=== PATIENT | male | born 1990 | race Caucasian/White ===

== ENCOUNTER 2019-03-07 10:21 | Emergency (ER) | payer SELFPAY ==
[~2019-03-07] VITALS: Ht 188 cm; Wt 140.6 kg
--- OUTSIDE RECORDS SUMMARY | 2019-03-07 10:27 | XMS REPORT | Continuity of Care Document ---
Author Organization Unknown Address Unknown Allergies There is no data. Medications There is no data. Problems Date Dx Coded Attending Type Code Diagnosis Diagnosed By 01/15/2014 KIAH PHILLIPS APRN V74.5 STD SCREEN Procedures Code [place] [address] ROUTINE VENIPUNCTURE 01/15/2014 56876 SYPHILLIS-[facility] 01/16/2014 40738 HIV ([facility]) 01/16/2014 76416 GC/CHLAM URINE ([facility]) 01/16/2014 HERPSM1,2 HERPES SIMPLEX 1 AND 2, IGM, IGG 01/16/2014 Results Test Result Range Hepatitis Panel (4) - 08/09/16 10:53 HBsAg Screen Negative Negative Hep A Ab, IgM Negative Negative Hep B Core Ab, IgM Negative Negative Hep C Virus Ab <0.1 s/co ratio 0.0-0.9 HSV 1 and 2-Specific Ab, IgG - 08/09/16 10:53 HSV 1 IgG, Type Spec <0.91 index 0.00-0.90 HSV 2 IgG, Type Spec <0.91 index 0.00-0.90 Encounters ACCT No. Visit Date/Time Discharge Status Pt. Type Provider Facility Loc./Unit Complaint [id number] 01/15/2014 09:46:00 01/15/2014 23:59:59 CLS Outpatient KIAH PHILLIPS APRN [id number] 08/11/2016 08:08:00 Document Registration
--- OUTSIDE RECORDS SUMMARY | 2019-03-07 10:27 | XMS REPORT ---
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 Unknown Non Drug Allergy Jul, Unknown SOCIAL HISTORY No smoking Hx information available PLAN OF CARE Activity Details Pending Test GC/CHLAM URINE (STATE) Pending Test SYPHILIS (STATE) Pending Test HIV (STATE) prn,Reason: VITAL SIGNS Height 73.5 in 2016-08-09 Weight 295.6 lbs 2016-08-09 Heart Rate 78 bpm 2016-08-09 Respiratory Rate 20 2016-08-09 BMI 38.47 kg/m2 2016-08-09 Blood pressure systolic 130 mmHg 2016-08-09 Blood pressure diastolic 70 mmHg 2016-08-09 MEDICATIONS No Known Medications RESULTS Name Result Date Reference Range HSV 1/2 ANTIBODY IgG 2016-08-09 HSV 1 IgG, Type Spec <0.91 0.00-0.90 HSV 2 IgG, Type Spec <0.91 0.00-0.90 HEPATITIS PROFILE 2016-08-09 Hep A Ab, IgM Negative Negative HBsAg Screen Negative Negative Hep B Core Ab, IgM Negative Negative Hep C Virus Ab <0.1 0.0-0.9 GC/CHLAM URINE ([facility]) 2016-08-09 CHLAMYDIA GC SYPHILIS (STATE) 2016-08-09 HIV (STATE) 2016-08-09 PROCEDURES Procedure Date Ordered Related Diagnosis Body Site ACUTE HEPATITIS PANEL Aug 09, 2016 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
--- NOTE | 2019-03-07 11:40 | ED Headache ---
General Chief Complaint: Head/Cervical Problems Stated Complaint: HEADACHE; LT VISION LOSS Source: patient, other (future [id number]) Exam Limitations: no limitations History of Present Illness Date Seen by Provider: Mar 07, 2019 Time Seen by Provider: 11:18 Initial Comments The patient presents to ER by private conveyance with chief complaint that since 2099 yesterday he's had a left-sided migraine headache that he describes as throbbing and worse with exertion causing a stabbing sensation. No photophobia or phonophobia. He says he had headaches in the past but always been right sided throbbing. Was different about today's headache though is that it was left-sided and made his vision blur when he got to its worst while he was at work. He had to leave work and went home so on the couch called his future [id number] to give him a ride to the ER. She brought him in and he says he has not taken anything for the pain but it resolved by the time he got here. Says the headache has been intermittent since 9:00 last night and usually last for about an hour or so. He's never followed with a primary care doctor but he's been told in the past at ERs that he might have high blood pressure and should follow-up. No head trauma he does not take any medications routinely. He denies recreational drugs. He is mother had high blood pressure and diabetes. He is not having any sore throat, fever, vomiting, diarrhea, dysuria, abdominal pain. 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 Allergies and Home Medications Patient Home Medication List Home Medication List Reviewed: Yes Review of Systems Review of Systems Constitutional: No chills, No diaphoresis Eyes: Denies Blindness, Denies Blurred Vision Ears, Nose, Mouth, Throat: denies ear pain, denies ear discharge Respiratory: No cough, No phlegm, No short of breath Cardiovascular: No chest pain, No edema Gastrointestinal: No abdominal pain, No constipation, No diarrhea; nausea (occasionally); No vomiting Genitourinary: No discharge, No dysuria Musculoskeletal: back pain (chronic); No joint pain Past Ummyxtj-Wepunk-Scnuil Hx Patient Social History Alcohol Use: Denies Use Recreational Drug Use: No Smoking Status: Smoker Current Status UKN Type Used: Electronic/Vapor Recent Hopitalizations: No Physical Abuse: No Sexual Abuse: No Mistreated: No Fear: No Seasonal Allergies Seasonal Allergies: No Past Medical History Surgeries: Yes (removal of shrapnel in hand) Respiratory: No Cardiac: No Neurological: No (Hx of some headaches not diagnosed) Genitourinary: No Gastrointestinal: No Musculoskeletal: No Endocrine: No HEENT: No Cancer: No Psychosocial: No Integumentary: No Blood Disorders: No Physical Exam Vital Signs Capillary Refill : Height, Weight, BMI Height: '" Weight: lbs. oz. kg; BMI Method: General Appearance: WD/WN, no apparent distress HEENT: PERRL/EOMI, normal ENT inspection, pharynx normal, TM abnormal (L) (mild injection without erythema, loss of landmarks.) Neck: non-tender, full range of motion, supple, normal inspection Cardiovascular: normal peripheral pulses, regular rate, rhythm, no edema Respiratory: lungs clear, normal breath sounds, no respiratory distress, no accessory muscle use Psychiatric: alert, oriented x 3 Crainal Nerves: normal hearing, normal speech, PERRL Coordination/Gait: normal gait Motor/Sensory: no motor deficit, no sensory deficit Skin: normal color, warm/dry Progress/Results/Core Measures Results/Orders My Orders Orders - VIVIAN OLIVEIRA Ct Head Wo (03/07/19 11:30) Cbc With Automated Diff (03/07/19 11:30) Comprehensive Metabolic Panel (03/07/19 11:30) Drug Screen Stat (Urine) (03/07/19 11:30) Thyroid Stimulating Hormone (03/07/19 11:30) Ua Culture If Indicated (03/07/19 11:30) Ed Iv/Invasive Line Start (03/07/19 11:30) Progress Progress Note : Time: 11:38 Progress Note We have offered to do a CT of the head, labs looking for dehydration or infection contributing or anemia. Urinalysis looking for UDS, infection or dehydration. Patient's headache is definitely different from his usual migraine headaches but he's never had them formally diagnosed or worked up. Because they are so intermittent and have already resolved he does not want anything for the pain now and has not been taking anything for the pain. After discussing the workup plan with him and he came and informed us that due to money being tight he would prefer not to do any workup today but he would follow-up with the primary care doctor likely suggested. He would like a note for work today. He is going to go stay at someone's house that has air-conditioning and drink fluids and see if the migraine headache goes away. Departure Impression Primary Impression: Headache Qualified Codes: R51 - Headache Disposition: 01 HOME, SELF-CARE Condition: Stable Departure-Patient Inst. Decision time for Depature: 11:41 Referrals: NO,LOCAL PHYSICIAN (PCP/Family) Primary Care Physician Patient Instructions: Headache, Adult (DC), LOCAL PHYSICIAN LIST Add. Discharge Instructions: If you begin to have any neurologic changes such as weakness, numbness, slurring speech, fevers or other worrisome symptoms please return to the nearest ER. Please establish care with a primary care doctor and follow-up. Tylenol 1000 mg every 8 hours in addition to ibuprofen 800 mg every 8 hours as necessary for pain relief. Get some sleep and drink lots of fluids. All discharge instructions reviewed with patient and/or family. Voiced understanding. Work/School Note: Work Release Form Date Seen in the Emergency Department: Mar 07, 2019 Return to Work: Mar 08, 2019 Restrictions: No Restrictions VIVIAN OLIVEIRA Mar 07, 2019 11:40
[2019-03-07 11:47] VITALS: BP 147/71
--- NOTE | 2019-03-07 11:47 | NUR ---
Pt discharged to home after Dr Broussard explained the work up he was ordering on pt to determine if any medical issues causing headache. Pt elected he could go home as his headache was gone but would take a work note that he was in ER and now he will return on Monday to work as he does not work on the weekend. Pt instructed of any worries or concerns to return to ED for.
== END 2019-03-07 11:47 | disposition home or self-care (01) ==
LOC: ER FS 10:23
DX: R51 Headache (principal); F17.290 Nicotine dependence, other tobacco product, uncomplicated; Z91.14 Patient's other noncompliance with medication regimen; Z82.49 Family history of ischemic heart disease and other diseases of the circulatory system
CPT/HCPCS: 99282

== ENCOUNTER 2019-04-11 11:22 | Emergency (ER) | payer SELFPAY ==
[~2019-04-11] VITALS: Ht 188 cm; Wt 137.4 kg
--- OUTSIDE RECORDS SUMMARY | 2019-04-11 11:27 | XMS REPORT | Continuity of Care Document ---
Author Organization Unknown Address Unknown Phone Unavailable Allergies There is no data. Medications There is no data. Problems Date Dx Coded Attending Type Code Diagnosis Diagnosed By 01/15/2014 KIAH PHILLIPS APRN V74.5 STD SCREEN Procedures Code [place] [address] ROUTINE VENIPUNCTURE 01/15/2014 03987 SYPHILLIS[facility] 01/16/2014 72735 HIV ([facility]) 01/16/2014 13720 GC/CHLAM URINE ([facility]) 01/16/2014 HERPSM1,2 HERPES SIMPLEX 1 AND 2, IGM, IGG 01/16/2014 Results Test Result Range GLUCOSE, SERUM - 03/21/19 08:45 GLUCOSE 80 mg/dL 65-99 Encounters ACCT No. Visit Date/Time Discharge Status Pt. Type Provider Facility Loc./Unit Complaint [id number] 01/15/2014 09:46:00 01/15/2014 23:59:59 CLS Outpatient KIAH PHILLIPS APRN [id number] 03/21/2019 08:45:00 03/21/2019 23:59:59 CLS Outpatient DERICK HARRIS DO [facility] [id number] 03/21/2019 08:45:00 Document Registration
[2019-04-11] MEDS ORDERED: TETANUS,DIPTH,PERTUSS P/F (BOOSTRIX) 0.5 ML VIAL IM ONE (11:30)
[2019-04-11] MEDS ORDERED: LIDOCAINE 1% INJ 20 ML 20 ML VIAL INJ ONE (11:30)
[2019-04-11 11:57] VITALS: BP 133/74
--- NOTE | 2019-04-11 11:58 | ED Integumentary General ---
General Chief Complaint: Foreign Body Stated Complaint: LT PINKY FOREIGN OBJECT Nursing Triage Note: fish hook in left fifth finger. Does not know when received last tetanus shot Source: patient Exam Limitations: no limitations History of Present Illness Date Seen by Provider: Apr 11, 2019 Time Seen by Provider: 11:30 Initial Comments 28-year-old male presents with trouble fishhook in his left pinky. Patient reports he was reaching up to grab a 2 x 4 and there was a fishing lure near it and it second finger. They were unable to get out of home. She is unsure of his last tetanus. He has no other injuries or complaints. Allergies and Home Medications Allergies Coded Allergies: No Known Drug Allergies (Unverified , 03/07/19) Patient Home Medication List Home Medication List Reviewed: Yes Review of Systems Review of Systems Constitutional: see HPI All Other Systems Reviewed Negative Unless Noted: Yes Past Hpfyqof-Kfuqoj-Epueqo Hx Past Med/Social Hx: Reviewed Nursing Past Med/Soc Hx Patient Social History Alcohol Use: Occasionally Uses Recreational Drug Use: No Smoking Status: Current Someday Smoker Type Used: Electronic/Vapor Recent Foreign Travel: No Contact w/Someone Who Travel: No Recent Infectious Disease Expo: No Recent Hopitalizations: No Physical Abuse: No Sexual Abuse: No Mistreated: No Fear: No Seasonal Allergies Seasonal Allergies: No Past Medical History Surgeries: Yes (removal of shrapnel in hand) Respiratory: No Cardiac: Yes (heart murmur as child) Neurological: No (Hx of some headaches not diagnosed) Genitourinary: No Gastrointestinal: No Musculoskeletal: No Endocrine: No HEENT: No Cancer: No Psychosocial: No Integumentary: No Blood Disorders: No Physical Exam Vital Signs Vital Signs - First Documented 04/11/19 11:27 Temp 97.9 Pulse 69 Resp 16 B/P (MAP) 133/74 (93) Pulse Ox 100 Capillary Refill : Less Than 3 Seconds General Appearance: WD/WN, no apparent distress Cardiovascular: regular rate, rhythm Respiratory: normal breath sounds, no respiratory distress Gastrointestinal: soft Skin: other (Treble hook with 1 alexandra stuck in his left pinky finger) Procedures/Interventions I&D : Progress [place] was removed from left pinky finger. The finger was blocked with 3 cc lidocaine. The patient was then removed using an 18-gauge needle to cover the alexandra and backed out. Patient tolerated without any difficulty. No further complications. Progress/Results/Core Measures Results/Orders My Orders Orders - IRWIN GARZA DO Dipht,Pertuss(Acell),Tet Adult (Boostrix (04/11/19 11:30) Lidocaine 1% Inj 20 Ml (Xylocaine 1% Inj (04/11/19 11:30) Medications Given in ED Current Medications Medications Dose Ordered Sig/Manpreet Route Start Time Stop Time Status Last Admin Dose Admin Diphtheria/ Tetanus/Acell Pertussis 0.5 ml ONCE ONCE IM 04/11/19 11:30 04/11/19 11:32 DC 04/11/19 11:42 0.5 ML Lidocaine HCl 5 ml ONCE ONCE INJ 04/11/19 11:30 04/11/19 11:32 DC 04/11/19 11:41 5 ML Vital Signs/I&O 04/11/19 11:27 Temp 97.9 Pulse 69 Resp 16 B/P (MAP) 133/74 (93) Pulse Ox 100 Blood Pressure Mean: 93 Departure Impression Primary Impression: Foreign body of left little finger Disposition: 01 HOME, SELF-CARE Condition: Stable Departure-Patient Inst. Referrals: NO,LOCAL PHYSICIAN (PCP/Family) Primary Care Physician Patient Instructions: Foreign Body in Skin (DC) IRWIN GARZA DO Apr 11, 2019 11:58
== END 2019-04-11 12:08 | disposition home or self-care (01) ==
LOC: EDUNIT# 11:22 → ER FS 11:24
DX: S60.457A Superficial foreign body of left little finger, initial encounter (principal); F17.290 Nicotine dependence, other tobacco product, uncomplicated; Z23 Encounter for immunization; W26.8XXA Contact with other sharp object(s), not elsewhere classified, initial encounter
CPT/HCPCS: 90471; 90715

== ENCOUNTER 2020-01-01 09:31 | Emergency (ER) | payer BC, OTHER ==
[~2020-01-01] VITALS: Ht 185 cm; Wt 132.0 kg
[2020-01-01] MEDS ORDERED: LEVO750T9 PO (09:39)
[2020-01-01] MEDS ORDERED: PANT40TA3 PO (09:39)
[2020-01-01] MEDS ORDERED: ONDA4TAB11 PO (09:39)
[2020-01-01] MEDS ORDERED: NS IV 1000 ML 1,000 ML IV SCH (09:45)
[2020-01-01] MEDS ORDERED: CATHETER FLUSH 10 ML SYR IV PRN (10:00)
[2020-01-01] MEDS ORDERED: IOHEXOL 350 MG/ML 100 ML (OMNIPAQUE 350) VIAL IV ONE (10:00)
[2020-01-01] MEDS ORDERED: HOLD METFORMIN - RECEIVED CONTRAST 20 ML VIAL IV SCH (10:00)
[2020-01-01] MEDS ORDERED: NS 100 ML (IVPB) BAG IV ONE (10:00)
[2020-01-01 10:01] LABS: BASOPHILS % (AUTO) 1 % (0-10); EOSINOPHILS % (AUTO) 4 % (0-10); HEMATOCRIT 47 % (40-54); HEMOGLOBIN 16.2 G/DL (13.3-17.7); LYMPHOCYTES % (AUTO) 22 % (12-44); MEAN CORPUSCULAR HEMOGLOBIN 30 PG (25-34); MEAN CORPUSCULAR HGB CONC 35 G/DL (32-36); MEAN CORPUSCULAR VOLUME 86 FL (80-99); MEAN PLATELET VOLUME 9.2 FL (7.4-10.4); MONOCYTES % (AUTO) 6 % (0-12); NEUTROPHILS % (AUTO) 67 % (42-75); PLATELET COUNT 226 10^3/uL (130-400); WHITE BLOOD COUNT 7.7 10^3/uL (4.3-11.0)
[2020-01-01 10:02] LABS: BASOPHILS # (AUTO) 0.1 10^3/uL (0.0-0.1); EOSINOPHILS # (AUTO) 0.3 10^3/uL (0.0-0.3); LYMPHOCYTES # (AUTO) 1.7 X 10^3 (1.0-4.0); MONOCYTES # (AUTO) 0.5 X 10^3 (0.0-1.0); NEUTROPHILS # (AUTO) 5.1 X 10^3 (1.8-7.8)
--- NOTE | 2020-01-01 10:02 | ED GI ---
General Chief Complaint: General Problems/Pain Stated Complaint: ABD PAIN,BLOOD IN STOOL Nursing Triage Note: Patient reports abdomen pain, diarrhea, blood when he wipes x 1.5 weeks. evaluated by PCP on friday 12/29, states hasn't gotten better Sepsis Screen: No Definite Risk Source of Information: Patient Exam Limitations: No Limitations History of Present Illness Date Seen by Provider: Jan 01, 2020 Time Seen by Provider: 09:40 Initial Comments The patient is a pleasant 29-year-old male who presents for evaluation of abdominal pain and bloody stools over the last 7 days. He describes the blood as a maroon color and says he has not noticed any bright red blood. He is never had this problem before. His abdominal pain is located in the right lower quadrant and he denies any abdominal surgical history. He states that he saw his PCP, Dr. Veliz, on Monday and had a CBC performed as well as an x-ray. Those records were reviewed. His hemoglobin was 15.1, his white blood cell count was normal, and his abdominal x-ray was unremarkable. He states he has not had a bowel movement since that visit and has not had any rectal bleeding. At no time has he had any rectal pain or hemorrhoids. He denies fevers or chills, chest pain or shortness of breath, urinary complaints, back or flank pain, diarrhea, or dizz iness. He states that he has had some fatigue over the last few days. Two days ago he was prescribed Protonix, Zofran, and Levaquin and states that he has been compliant. Timing/Duration: 1 Week Severity/Quality: Moderate (RLQ pain, bloody stools) Location: RLQ Radiation: No Radiation Associated Symptoms: Fatigue Allergies and Home Medications Allergies Coded Allergies: No Known Drug Allergies (Unverified , 03/07/19) Home Medications Pantoprazole Sodium 40 Mg Tablet., 40 MG PO DAILY, (Reported) Patient Home Medication List Home Medication List Reviewed: Yes Review of Systems Review of Systems Constitutional: no symptoms reported, other (fatigue) EENTM: No Symptoms Reported Respiratory: No Symptoms Reported Cardiovascular: No Symptoms Reported Gastrointestinal: Abdominal Pain, Blood Streaked Stools Genitourinary: No Symptoms Reported Musculoskeletal: no symptoms reported Skin: no symptoms reported Psychiatric/Neurological: No Symptoms Reported Endocrine: No Symptoms Reported Hematologic/Lymphatic: No Symptoms Reported All Other Systems Reviewed Negative Unless Noted: Yes Past Bnnuwiu-Vuobfj-Aqyxfe Hx Past Med/Social Hx: Reviewed Nursing Past Med/Soc Hx Patient Social History Alcohol Use: Denies Use Recreational Drug Use: No Smoking Status: Current Everyday Smoker Type Used: Electronic/Vapor Recent Foreign Travel: No Contact w/Someone Who Travel: No Recent Infectious Disease Expo: No Recent Hopitalizations: No Seasonal Allergies Seasonal Allergies: No Past Medical History Surgeries: Yes (removal of shrapnel in hand) Respiratory: No Cardiac: Yes (heart murmur as child) Neurological: No (Hx of some headaches not diagnosed) Genitourinary: No Gastrointestinal: No Musculoskeletal: No Endocrine: No HEENT: No Cancer: No Psychosocial: No Integumentary: No Blood Disorders: No Physical Exam Vital Signs Vital Signs - First Documented 01/01/20 09:39 Temp 36.6 Pulse 75 Resp 18 B/P (MAP) 152/76 (101) Pulse Ox 100 Capillary Refill : Less Than 3 Seconds Height/Weight/BMI Height: 6'2.00" Weight: 303lbs. oz. 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 nml as tested, alert, normal mood/affect, oriented x 3 Skin: normal color, warm/dry Progress/Results/Core Measures Results/Orders Lab Results Laboratory Tests Test 01/01/20 09:53 01/01/20 10:15 Range/Units White Blood Count 7.7 4.3-11.0 10^3/uL Red Blood Count 5.45 4.35-5.85 10^6/uL Hemoglobin 16.2 13.3-17.7 G/DL Hematocrit 47 40-54 % Mean Corpuscular Volume 86 80-99 FL Mean Corpuscular Hemoglobin 30 25-34 PG Mean Corpuscular Hemoglobin Concent 35 32-36 G/DL Red Cell Distribution Width 13.0 10.0-14.5 % Platelet Count 226 130-400 10^3/uL Mean Platelet Volume 9.2 7.4-10.4 FL Neutrophils (%) (Auto) 67 42-75 % Lymphocytes (%) (Auto) 22 12-44 % Monocytes (%) (Auto) 6 0-12 % Eosinophils (%) (Auto) 4 0-10 % Basophils (%) (Auto) 1 0-10 % Neutrophils # (Auto) 5.1 1.8-7.8 X 10^3 Lymphocytes # (Auto) 1.7 1.0-4.0 X 10^3 Monocytes # (Auto) 0.5 0.0-1.0 X 10^3 Eosinophils # (Auto) 0.3 0.0-0.3 10^3/uL Basophils # (Auto) 0.1 0.0-0.1 10^3/uL Sodium Level 141 135-145 MMOL/L Potassium Level 4.2 3.6-5.0 MMOL/L Chloride Level 103 98-107 MMOL/L Carbon Dioxide Level 25 21-32 MMOL/L Anion Gap 13 5-14 MMOL/L Blood Urea Nitrogen 11 7-18 MG/DL Creatinine 1.01 0.60-1.30 MG/DL Estimat Glomerular Filtration Rate > 60 BUN/Creatinine Ratio 11 Glucose Level 96 70-105 MG/DL Calcium Level 9.7 8.5-10.1 MG/DL Corrected Calcium 8.5-10.1 MG/DL Total Bilirubin 0.4 0.1-1.0 MG/DL Aspartate Amino Transf (AST/SGOT) 25 5-34 U/L Alanine Aminotransferase (ALT/SGPT) 33 0-55 U/L Alkaline Phosphatase 61 40-136 U/L Total Protein 7.3 6.4-8.2 GM/DL Albumin 4.9 H 3.2-4.5 GM/DL Amylase Level 40 25-125 U/L Lipase 27 8-78 U/L Urine Color YELLOW Urine Clarity CLEAR Urine pH 5.5 5-9 Urine Specific [place] 1.025 H 1.016-1.022 Urine Protein NEGATIVE NEGATIVE Urine Glucose (UA) NEGATIVE NEGATIVE Urine Ketones NEGATIVE NEGATIVE Urine Nitrite NEGATIVE NEGATIVE Urine Bilirubin NEGATIVE NEGATIVE Urine Urobilinogen 0.2 < = 1.0 MG/DL Urine Leukocyte Esterase NEGATIVE NEGATIVE Urine RBC (Auto) NEGATIVE NEGATIVE Urine RBC NONE /HPF Urine WBC NONE /HPF Urine Crystals NONE /LPF Urine Bacteria NONE /HPF Urine Casts NONE /LPF Urine Mucus SMALL H /LPF Urine Culture Indicated NO My Orders Orders - ISALNEA DO Cbc With Automated Diff (01/01/20 09:37) Comprehensive Metabolic Panel (01/01/20 09:37) Urinalysis (01/01/20 09:37) Ed Iv/Invasive Line Start (01/01/20 09:37) Amylase (01/01/20 09:37) Lipase (01/01/20 09:37) Ns Iv 1000 Ml (Sodium Chloride 0.9%) (01/01/20 09:45) Ct Abdomen/Pelvis W (01/01/20 09:37) Iohexol Injection (Omnipaque 350 Mg/Ml 1 (01/01/20 10:00) Received Contrast (Hold Metformin- Contr (01/01/20 10:00) Sodium Chloride Flush (Catheter Flush Sy (01/01/20 10:00) Ns (Ivpb) (Sodium Chloride 0.9% Ivpb Bag (01/01/20 10:00) Medications Given in ED Current Medications Medications Dose Ordered Sig/Manpreet Route Start Time Stop Time Status Last Admin Dose Admin Iohexol 100 ml ONCE ONCE IV 01/01/20 10:00 01/01/20 10:01 DC 01/01/20 10:16 100 ML Sodium Chloride 10 ml NEEDED PRN IV 01/01/20 10:00 01/01/20 10:16 10 ML Sodium Chloride 100 ml ONCE ONCE IV 01/01/20 10:00 01/01/20 10:01 DC 01/01/20 10:16 80 ML Vital Signs/I&O 01/01/20 09:39 Temp 36.6 Pulse 75 Resp 18 B/P (MAP) 152/76 (101) Pulse Ox 100 Blood Pressure Mean: 101 Progress Progress Note : Progress Note @1058 - Patient updated on lab and imaging results which are acutely un remarkable. He appears comfortable at this time. Advise continuing the previously prescribed medications including antibiotic and to follow up with his PCP in the next 1-2 days. Advised the patient to return to the emergency department immediately for new or worsening symptoms. Diagnostic Imaging Diagonstic Imaging: CT Comments [facility] [place], [place] NAME: NIRALI HENDERSON [facility] REC#: [id number] PT STATUS: REG ER : 1990 PHYSICIAN: LENA MOSS DO ADMIT DATE: 01/01/20/ER FS Draft Date of Exam:01/01/20 CT ABDOMEN/PELVIS W EXAMINATION: CT Abdomen and Pelvis with intravenous contrast. TECHNIQUE: Multiple contiguous axial images were obtained through the abdomen and pelvis after the uneventful administration of intravenous contrast. All CT scans use one or more of the following dose optimizing techniques: automated exposure control, MA and/or KvP adjustment based on a patient size and exam type, or iterative reconstruction. HISTORY: Abdominal pain, blood in stool. COMPARISON: None available. FINDINGS: Limited views of the lower thorax are unremarkable. The liver is normal without focal lesion. There is no biliary ductal dilation. The gallbladder is normal. The pancreas is normal. The spleen is normal. The adrenal glands are normal. The kidneys are normal. There is no hydronephrosis. The urinary bladder is normal. The visualized bowel is normal in caliber without obstruction or inflammation. The appendix is normal. No free fluid or air. No abdominal or pelvic lymphadenopathy. The aorta is normal in caliber without aneurysm. There are no suspicious osseus lesions. IMPRESSION: No acute abnormality in the abdomen or pelvis. Dictated on workstation # [id number] Dict: 01/01/20 1034 Trans: 01/01/20 1039 [id number] Interpreted by: RAMO KITCHEN MD Electronically signed by: Departure Impression Primary Impression: Abdominal pain Disposition: 01 HOME, SELF-CARE Condition: Stable Departure-Patient Inst. Decision time for Depature: 11:13 Referrals: SHANE VELIZ MD (PCP/Family) Primary Care Physician Patient Instructions: Acute Abdomen (Belly Pain) Add. Discharge Instructions: Continue to take the medications the Dr. Veliz on any prescribed to you. Follow-up with your PCP in the next 1-2 days. Return to the emergency Department immediately for new or worsening symptoms. LENA MOSS DO Jan 01, 2020 10:02
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
--- OUTSIDE RECORDS SUMMARY | 2020-01-01 10:14 | XMS REPORT | Continuity of Care Document ---
Author Organization Unknown Address Unknown Phone Unavailable Allergies Active Description Code Type Severity Reaction Onset Reported/Identified Relationship to Patient Clinical Status Yes No Known Drug Allergies [id number] Drug Allergy Unknown N/A 03/07/2019 Medications There is no data. Problems Date Dx Coded Attending Type Code Diagnosis Diagnosed By 01/15/2014 KIAH PHILLIPS APRN V7 4.5 STD SCREEN 03/07/2019 ROXANNE WARE, VIVIAN Henderson Ot F17.290 NICOTINE DEPENDENCE, OTHER TOBACCO PRODU 03/07/2019 ROXANNE WARE, VIVIAN Henderson Ot R51 HEADACHE 03/07/2019 ROXANNE WARE, VIVIAN Henderson Ot Z82. 49 FAMILY HX OF ISCHEM HEART DIS AND OTH DI 03/07/2019 ROXANNE WARE, VIVIAN Henderson Ot Z91. 14 PATIENT'S OTHER NONCOMPLIANCE WITH MEDIC 04/11/2019 GARZA DO, IRWIN L Ot F17.2 90 NICOTINE DEPENDENCE, OTHER TOBACCO PRODU 04/11/2019 GARZA DO, IRWIN L Ot S60.457A SUPERFICIAL FOREIGN BODY OF LEFT LITTLE 04/11/2019 GARZA DO, IWRIN L Ot W26.8XXA CONTACT WITH OTHER SHARP OBJECT(S), NEC, 04/11/2019 GARZA DO, IRWIN L Ot Z23 ENCOUNTER FOR IMMUNIZATION 04/15/2019 GARZA DO, IRWIN L Ot F17.2 90 NICOTINE DEPENDENCE, OTHER TOBACCO PRODU 04/15/2019 GARZA DO, IRWIN L Ot S60.457A SUPERFICIAL FOREIGN BODY OF LEFT LITTLE 04/15/2019 GARZA DO, IRWIN L Ot W26.8XXA CONTACT WITH OTHER SHARP OBJECT(S), NEC, 04/15/2019 GARZA DO, IRWIN L Ot Z23 ENCOUNTER FOR IMMUNIZATION Procedures Code Description [place] [address] ROUT INE VENIPUNCTURE 01/15/2014 57728 SYPH ILLIS[facility] 01/16/2014 31518 HIV ([facility]) 01/16/2014 74880 GC/C HLAM URINE (STATE) 01/16/2014 HERPSM1,2 HERPES SIMPLEX 1 AND 2, IGM, IGG 01/16/2014 Results Test Result Range Hepatitis Panel (4) - 08/09/16 10:53 HBsAg Screen Negative Negative Hep A Ab, IgM Negative Negative Hep B Core Ab, IgM Negative Negative Hep C Virus Ab <0.1 s/co ratio 0.0-0.9 HSV 1 and 2-Specific Ab, IgG - 08/09/16 10:53 HSV 1 IgG, Type Spec <0.91 index 0.00-0. 90 HSV 2 IgG, Type Spec <0.91 index 0.00-0. 90 GLUCOSE, SERUM - 03/21/19 08:45 GLUCOSE 80 mg/dL 65-99 Encounters ACCT No. Visit Date/Time Discharge Status Pt. Type Provider Facility Loc./Unit Complaint [id number] 01/15/2014 09:46:00 01/15/2014 23:59: 59 CLS Outpatient KIAH PHILLIPS APRN [id number] 12/30/2019 10:00:00 ACT Outpatient SHANE VELIZ [facility] [id number] 03/21/2019 08:45:00 Document Registration [id number] 04/11/2019 11:24:00 019 12:08:00 DIS Emergency IRWIN GARZA DO [facility] ER FS LT PINKY FOREIGN OBJECT [id number] 03/07/2019 10:23:00 019 11:47:00 DIS Emergency VIVIAN OLIVEIRA MD [facility] ER FS HEADACHE; LT VISION LOS S [id number] 08/11/2016 08:08:00 Document Registration
[2020-01-01 10:21] LABS: ALANINE AMINOTRANSFERASE 33 U/L (0-55); ALBUMIN 4.9 GM/DL (3.2-4.5); ALKALINE PHOSPHATASE 61 U/L (40-136); AMYLASE 40 U/L (25-125); BILIRUBIN,TOTAL 0.4 MG/DL (0.1-1.0); BUN/CREATININE RATIO 11; CALCIUM 9.7 MG/DL (8.5-10.1); CARBON DIOXIDE 25 MMOL/L (21-32); CHLORIDE 103 MMOL/L (98-107); CREATININE SERUM 1.01 MG/DL (0.60-1.30); GFR ESTIMATED > 60; GLUCOSE 96 MG/DL (70-105); LIPASE 27 U/L (8-78); POTASSIUM 4.2 MMOL/L (3.6-5.0); SODIUM 141 MMOL/L (135-145); TOTAL PROTEIN 7.3 GM/DL (6.4-8.2)
[2020-01-01 10:33] LABS: BILIRUBIN,URINE NEGATIVE (NEGATIVE); CLARITY,URINE CLEAR; COLOR,URINE YELLOW; GLUCOSE, URINE (UA) NEGATIVE (NEGATIVE); KETONES,URINE NEGATIVE (NEGATIVE); LEUKOCYTE ESTERASE ,URINE NEGATIVE (NEGATIVE); NITRITE,URINE NEGATIVE (NEGATIVE); PH,URINE 5.5 (5-9); PROTEIN,URINE NEGATIVE (NEGATIVE)
--- NOTE | 2020-01-01 10:40 | Diagnostic Imaging Report ---
EXAMINATION: CT Abdomen and Pelvis with intravenous contrast. TECHNIQUE: Multiple contiguous axial images were obtained through the abdomen and pelvis after the uneventful administration of intravenous contrast. All CT scans use one or more of the following dose optimizing techniques: automated exposure control, MA and/or KvP adjustment based on a patient size and exam type, or iterative reconstruction. HISTORY: Abdominal pain, blood in stool. COMPARISON: None available. FINDINGS: Limited views of the lower thorax are unremarkable. The liver is normal without focal lesion. There is no biliary ductal dilation. The gallbladder is normal. The pancreas is normal. The spleen is normal. The adrenal glands are normal. The kidneys are normal. There is no hydronephrosis. The urinary bladder is normal. The visualized bowel is normal in caliber without obstruction or inflammation. The appendix is normal. No free fluid or air. No abdominal or pelvic lymphadenopathy. The aorta is normal in caliber without aneurysm. There are no suspicious osseus lesions. IMPRESSION: No acute abnormality in the abdomen or pelvis. Dictated by: Dictated on workstation # [id number]
[2020-01-01 11:22] VITALS: BP 148/76
== END 2020-01-01 11:21 | disposition home or self-care (01) ==
LOC: EDUNIT# 09:31 → ER FS 09:34
DX: R10.31 Right lower quadrant pain (principal); R19.5 Other fecal abnormalities
CPT/HCPCS: 36415; 74177; 80053; 81000; 82150; 83690; 85025

== ENCOUNTER → 2020-08-24 | Outpatient (CLI) | payer BC ==
[~2020-08-24] MED LIST: LEVO750T9 PO; ONDA4TAB11 PO; PANT40TA52 PO
--- NOTE | 2020-08-24 16:58 | Diagnostic Imaging Report ---
PROCEDURE: MRI lumbar spine. TECHNIQUE: Multiplanar, multisequence MRI of the lumbar spine was performed without contrast. INDICATION: Low back pain since April 2020 following lifting injury. History of fall from roof. COMPARISON: CT of the abdomen and pelvis from December 2019. FINDINGS: The last well-formed disc space will be labeled at L5-S1 for the purposes of this examination. There is mild height loss of the L1 vertebral body which is chronic and may be from a Schmorl's node or remote trauma at the inferior endplate. There is a T1 weighted hyperintense lesion in the T12 vertebral body which measures 1.7 x 0.9 cm in size, consistent with a hemangioma. The conus terminates in appropriate position. Soft tissues about the lumbar spine demonstrate no acute abnormality. T12-L1: No significant disc bulge. No spinal canal or foraminal stenosis. L1-L2: Diffuse disc bulge with facet arthropathy. Minimal spinal canal narrowing. No foraminal stenosis. L2-L3: Diffuse disc bulge with moderate spinal canal stenosis and complete effacement of the right lateral recess and moderate effacement of the left lateral recess. Mild bilateral foraminal narrowing. L3-L4: Diffuse disc bulge with facet arthropathy and effacement of the lateral recesses bilaterally. Mild spinal canal narrowing. Moderate bilateral foraminal stenosis. L4-L5: Diffuse disc bulge with a superimposed posterior central disc protrusion. This causes severe left and moderate right effacement of the lateral recesses. This appears to contact the left L4 nerve root. There is moderate spinal canal stenosis. There is moderate bilateral foraminal stenosis. L5-S1: Diffuse disc bulge with left foraminal disc protrusion causing significant effacement of the left lateral recess and mild spinal canal narrowing. There is moderate right and severe left foraminal stenosis. IMPRESSION: 1. Multilevel degenerative disc disease, greater than expected for age. This results in multilevel moderate spinal canal stenosis. There is multilevel foraminal stenosis bilaterally, most severe at L5-S1 on the left. 2. Deformity of the inferior endplate of L1 with no acute fracture seen. Dictated by: Dictated on workstation # [id number]
== END ==
LOC: RAD 16:08
PROVIDERS: ATTEND Nurse Practitioner Family
DX: M47.816 Spondylosis without myelopathy or radiculopathy, lumbar region (principal); M47.817 Spondylosis without myelopathy or radiculopathy, lumbosacral region; M51.26 Other intervertebral disc displacement, lumbar region; M51.27 Other intervertebral disc displacement, lumbosacral region; M48.061 Spinal stenosis, lumbar region without neurogenic claudication; M48.07 Spinal stenosis, lumbosacral region; M43.8X6 Other specified deforming dorsopathies, lumbar region
CPT/HCPCS: 72148

== ENCOUNTER 2020-09-08 08:56 | Emergency (ER) | payer BC ==
[~2020-09-08] VITALS: Ht 187 cm; Wt 140.0 kg
--- NOTE | 2020-09-08 09:05 | ED GU-Male ---
General Chief Complaint: Male Reproductive Stated Complaint: LT HIP PAIN; TESTICLE PAIN Source: patient Exam Limitations: no limitations History of Present Illness Date Seen by Provider: Sep 08, 2020 Time Seen by Provider: 09:05 Initial Comments 29-year-old male presents with left hip and left testicle pain. Patient reports he's had left hip pain for months at least since around March or April. Patient had an MRI on August 24 that showed multiple levels of bulging disc and lumbar stenosis in his lumbar spine. He has an appointment with the back specialist on September 21. Patient reports that today he felt like his back popped and that the pain shifted a little bit towards his left testicle. That now is shifted a little bit back to his hip. He called his primary care provider who obtained an MRI. His primary care provider sent him to the ER for further evaluation. Patient has been having numbness in his left leg since April and there is no new numbness. He has no decreased range of motion from his previous. He is not having any difficulty urinating. He does have some minor tenderness in his left lower abdomen. Patient reports he does a lot of lifting at work. Allergies and Home Medications Allergies Coded Allergies: No Known Drug Allergies (Unverified , 03/07/19) Home Medications Pantoprazole Sodium 40 Mg Tablet.dr, 40 MG PO DAILY, (Reported) Patient Home Medication List Home Medication List Reviewed: Yes Review of Systems Review of Systems Constitutional: No chills, No fever Respiratory: No cough, No short of breath Cardiovascular: No chest pain, No palpitations Gastrointestinal: No abdominal pain, No nausea, No vomiting Genitourinary: see HPI Musculoskeletal: see HPI Skin: no symptoms reported Psychiatric/Neurological: No Symptoms Reported Endocrine: No Symptoms Reported Past Owzzdmt-Zrfzeq-Tdqdot Hx Past Med/Social Hx: Reviewed Nursing Past Med/Soc Hx Patient Social History Type Used: Electronic/Vapor Recent Foreign Travel: No Contact w/Someone Who Travel: No Recent Hopitalizations: No Seasonal Allergies Seasonal Allergies: No Past Medical History Surgeries: Yes (removal of shrapnel in hand) Respiratory: No Cardiac: Yes (heart murmur as child) Neurological: No (Hx of some headaches not diagnosed) Genitourinary: No Gastrointestinal: No Musculoskeletal: No Endocrine: No HEENT: No Cancer: No Psychosocial: No Integumentary: No Blood Disorders: No Physical Exam Vital Signs Vital Signs - First Documented 09/08/20 09:00 Temp 36.6 Pulse 104 Resp 18 B/P (MAP) 159/91 (113) Pulse Ox 98 O2 Delivery Room Air Capillary Refill : Height, Weight, BMI Height: 6'2.00" Weight: 303lbs. oz. 137.174951yp; 38.00 BMI Method:Stated General Appearance: no apparent distress Neck: full range of motion Cardiovascular: regular rate, rhythm, no edema Respiratory: chest non-tender, lungs clear Gastrointestinal: non tender, soft Genital/Rectal: tenderness, other (negative exam for hernia or swelling erythema, only abnormality is some slight tenderness) Back: no CVA tenderness Extremities: normal capillary refill Neurologic/Psychiatric: alert, normal mood/affect, abnormal gait (ataxic), other (decreased sensation left leg however this is not new) Progress/Results/Core Measures Suspected Sepsis SIRS Temperature: Pulse: Respiratory Rate: Blood Pressure / Mean: Results/Orders Lab Results Laboratory Tests Test 09/08/20 09:02 Range/Units Urine Color DARK YELLOW Urine Clarity CLEAR Urine pH 6.0 5-9 Urine Specific [place] >=1.030 1.016-1.022 Urine Protein TRACE H NEGATIVE Urine Glucose (UA) NEGATIVE NEGATIVE Urine Ketones NEGATIVE NEGATIVE Urine Nitrite NEGATIVE NEGATIVE Urine Bilirubin NEGATIVE NEGATIVE Urine Urobilinogen 0.2 < = 1.0 MG/DL Urine Leukocyte Esterase NEGATIVE NEGATIVE Urine RBC (Auto) NEGATIVE NEGATIVE Urine RBC NONE /HPF Urine WBC 0-2 /HPF Urine Squamous Epithelial Cells 0-2 /HPF Urine Crystals NONE /LPF Urine Bacteria NEGATIVE /HPF Urine Casts NONE /LPF Urine Mucus MODERATE H /LPF Urine Other /HPF Urine Culture Indicated NO My Orders Orders - GARZA,IRWIN L DO Us Scrotum (Testicle) [id number] (09/08/20 09:06) Us Pelvic (Non Ob) [id number] (09/08/20 09:06) Ua Culture If Indicated (09/08/20 09:06) Vital Signs/I&O 09/08/20 09:00 Temp 36.6 Pulse 104 Resp 18 B/P (MAP) 159/91 (113) Pulse Ox 98 O2 Delivery Room Air Capillary Refill : Progress Note : Time: 10:33 Progress Note Patient with a negative ultrasound of his testicles and for any hernias. Patient with no new neurologic complaints. Patient's numbness is been going on for months and his legs as well as of pain in his back and hip. Patient MRI was reviewed and shows bulging disc in his lumbar spine throughout with some spinal stenosis. Patient already has an appointment with back specialist on September 21. I recommended he try to move that up if he needs to. At this point no further workup would be warranted since there is no increasing or significant changes in his neurologic complaints from prior to when that MRI was obtained. Patient stable will be discharged home Departure Impression Primary Impression: Bulging lumbar disc Additional Impression: Testicular discomfort Disposition: HOME, SELF-CARE Condition: Stable Departure-Patient Inst. Referrals: SHANE VELIZ MD (PCP/Family) Primary Care Physician Patient Instructions: Herniated Disc (DC) Add. Discharge Instructions: Follow-up with your primary care provider as needed, keep her already scheduled appointment with your back specialist. If you develop worsening neurologic s ymptoms such as inability to urinate or defecate or any other worrisome symptoms please follow with the emergency room or your primary care provider. All discharge instructions reviewed with patient and/or family. Voiced understanding. IRWIN GARZA DO Sep 08, 2020 09:05
--- NOTE | 2020-09-08 10:26 | Diagnostic Imaging Report ---
PROCEDURE: US Scrotum. TECHNIQUE: Multiple Real-time grayscale images were obtained over the scrotum in various projections bilaterally. INDICATION: Testicular pain. FINDINGS: The right testicle measures 4.4 x 2.3 x 3.1 cm and the left testicle measures 4.1 x 2.1 x 3.1 cm. Both testes demonstrate homogeneous echotexture. No testicular mass is seen. There is blood flow to both testes. The epididymides are unremarkable. No hydrocele or varicocele is detected. IMPRESSION: Unremarkable scrotal ultrasound. Dictated by: Dictated on workstation # [id number]
[2020-09-08 10:27] LABS: BILIRUBIN,URINE NEGATIVE (NEGATIVE); CLARITY,URINE CLEAR; COLOR,URINE DARK YELLOW; GLUCOSE, URINE (UA) NEGATIVE (NEGATIVE); KETONES,URINE NEGATIVE (NEGATIVE); LEUKOCYTE ESTERASE ,URINE NEGATIVE (NEGATIVE); NITRITE,URINE NEGATIVE (NEGATIVE); PROTEIN,URINE TRACE (NEGATIVE)
[2020-09-08 10:28] LABS: BACTERIA,URINE NEGATIVE /HPF; SQUAMOUS EPITHELIAL CELL,UR 0-2 /HPF; WBC,URINE 0-2 /HPF
--- NOTE | 2020-09-08 10:28 | Diagnostic Imaging Report ---
PROCEDURE: US PELVIC (NON OB). TECHNIQUE: Multiple Real-time grayscale images were obtained over the pelvis in various projections transabdominally. INDICATION: Left hip pain. FINDINGS: The left inguinal region was evaluated due to pain. No hernia is detected. No fluid collection or mass is detected. IMPRESSION: No sonographic abnormality is detected. Dictated by: Dictated on workstation # [id number]
[2020-09-08 10:54] VITALS: BP 142/62
== END 2020-09-08 10:55 | disposition home or self-care (01) ==
LOC: EDUNIT# 08:56 → ER FS 08:58
DX: M51.26 Other intervertebral disc displacement, lumbar region (principal); N50.819 Testicular pain, unspecified
CPT/HCPCS: 76856; 76870; 81000

== ENCOUNTER 2021-05-13 16:46 | Emergency (ER) | payer BC ==
[~2021-05-13] VITALS: Ht 170 cm; Wt 136.0 kg
--- OUTSIDE RECORDS SUMMARY | 2021-05-13 16:51 | XMS REPORT | Clinical Summary ---
Author Author [facility] Organization [facility] Address Unknown Phone Unavailable Care Team Providers Care Evs Manager Name Role Phone PCP Unavailable Source Comments [facility] (Labor and Delivery) documents do not appear in the [facility] Allergies Not on File Medications Please verify current medications with patient. Not on file Active Problems Not on file Social History Date Tobacco Use Types Packs/Day Years Used Never Assessed Sex Assigned at Date Recorded Not on file Last Filed Vital Signs Not on file Plan of Treatment Health Maintenance Due Date Last Done Comments COVID-19 Vaccine (1) 2004 Influenza Vaccine (#1) 2021 HPV Vaccine Aged Out No longer eligible based on patient's age to complete this topic Pneumococcal Vaccine: Aged Out No longer eligib le based on patient's age to Pediatrics (0 to 5 Years) complete this topic and At-Risk Patients (6 to 64 Years) Results Not on filefrom Last 3 Months
--- NOTE | 2021-05-13 17:12 | ED Respiratory ---
General Chief Complaint: General Problems/Pain Stated Complaint: COVID POSITIVE, LOW O2 Source: patient Exam Limitations: no limitations History of Present Illness Date Seen by Provider: May 13, 2021 Time Seen by Provider: 17:11 Initial Comments This is a 30 yo male who presented to the ED via POV from [facility] for COVID and low oxygen saturation. States he was seen at [facility] in [place] and diagnosed with COVID today. At office reports his oxygen saturation 88-89% on room air. Reports chills, fatigue, and shortness of breath. Did not receive COVID vaccine. Denies chest pain, nausea, vomiting, diarrhea. Allergies and Home Medications Allergies Coded Allergies: No Known Drug Allergies (Unverified , 03/07/19) Patient Home Medication List Home Medication List Reviewed: Yes Levofloxacin (Levaquin) 750 Mg Tablet, 750 MG PO, (Reported) Entered as Reported by: KENDRA TREJO on 01/01/20938 Methylprednisolone (Methylprednisolone Dose Pack) 4 Mg Tab.ds.pk, 4 MG PO UD Prescribed by: MICHELLE GONSALES on 05/13/211906 Ondansetron (Ondansetron Odt) 4 Mg Tab.rapdis, 4 MG PO, (Reported) Entered as Reported by: KENDRA TREJO on 01/01/20938 Pantoprazole Sodium (Pantoprazole Sodium) 40 Mg Tablet.dr, 40 MG PO DAILY, (Reported) Entered as Reported by: KENDRA TREJO on 01/01/20938 Review of Systems Review of Systems Constitutional: see HPI EENTM: no symptoms reported Respiratory: see HPI Cardiovascular: no symptoms reported Gastrointestinal: no symptoms reported Genitourinary: no symptoms reported Musculoskeletal: no symptoms reported Skin: no symptoms reported Psychiatric/Neurological: No Symptoms Reported Hematologic/Lymphatic: No Symptoms Reported Immunological/Allergic: no symptoms reported Past Cnlezqx-Ioakzn-Jkgfvp Hx Seasonal Allergies Seasonal Allergies: No Past Medical History Surgeries: Yes (removal of shrapnel in hand) Respiratory: No Cardiac: Yes (heart murmur as child) Neurological: No (Hx of some headaches not diagnosed) Genitourinary: No Gastrointestinal: No Musculoskeletal: No Endocrine: No HEENT: No Cancer: No Psychosocial: No Integumentary: No Blood Disorders: No Physical Exam Vital Signs - First Documented 05/13/21 17:00 Temp 37.0 Pulse 75 Resp 16 B/P (MAP) 154/96 (115) Pulse Ox 98 O2 Delivery Room Air Capillary Refill : Height: 6'2.00" Weight: 303lbs. oz. 137.081322vf; 40.00 BMI Method:Stated General Appearance: WD/WN, no apparent distress Eyes: Bilateral Eye Normal Inspection, Bilateral Eye EOMI HEENT: PERRL/EOMI, normal ENT inspection Neck: non-tender, full range of motion, supple Respiratory: lungs clear, normal breath sounds, no respiratory distress, no accessory muscle use Cardiovascular: regular rate, rhythm, no murmur Gastrointestinal: normal bowel sounds, non tender, soft, no organomegaly Extremities: normal range of motion, non-tender, normal inspection Neurologic/Psychiatric: no motor/sensory deficits, alert, normal mood/affect, oriented x 3 Skin: normal color, warm/dry Progress/Results/Core Measures Suspected Sepsis SIRS Temperature: Pulse: Respiratory Rate: Laboratory Tests 05/13/21 17:15: White Blood Count 2.8L Blood Pressure / Mean: Laboratory Tests 05/13/21 17:15: Creatinine 1.03, Platelet Count 162, Total Bilirubin 0.3 Results/Orders Lab Results Laboratory Tests Test 05/13/21 17:15 Range/Units White Blood Count 2.8 L 4.3-11.0 10^3/uL Red Blood Count 5.24 4.30-5.52 10^6/uL Hemoglobin 15.7 13.3-17.7 g/dL Hematocrit 45 40-54 % Mean Corpuscular Volume 86 80-99 fL Mean Corpuscular Hemoglobin 30 25-34 pg Mean Corpuscular Hemoglobin Concent 35 32-36 g/dL Red Cell Distribution Width 11.9 10.0-14.5 % Platelet Count 162 130-400 10^3/uL Mean Platelet Volume 9.1 9.0-12.2 fL Immature Granulocyte % (Auto) 1 % Neutrophils (%) (Auto) 42 42-75 % Lymphocytes (%) (Auto) 36 12-44 % Monocytes (%) (Auto) 20 H 0-12 % Eosinophils (%) (Auto) 1 0-10 % Basophils (%) (Auto) 0 0-10 % Neutrophils # (Auto) 1.2 L 1.8-7.8 10^3/uL Lymphocytes # (Auto) 1.0 1.0-4.0 10^3/uL Monocytes # (Auto) 0.6 0.0-1.0 10^3/uL Eosinophils # (Auto) 0.0 0.0-0.3 10^3/uL Basophils # (Auto) 0.0 0.0-0.1 10^3/uL Immature Granulocyte # (Auto) 0.0 0.0-0.1 10^3/uL Neutrophils % (Manual) 47 % Lymphocytes % (Manual) 33 % Monocytes % (Manual) 16 % Eosinophils % (Manual) 2 % Band Neutrophils 2 % Blood Morphology Comment NORMAL D-Dimer <= 0.27 0.00-0.49 UG/ML Sodium Level 138 135-145 MMOL/L Potassium Level 3.9 3.6-5.0 MMOL/L Chloride Level 103 98-107 MMOL/L Carbon Dioxide Level 24 21-32 MMOL/L Anion Gap 11 5-14 MMOL/L Blood Urea Nitrogen 10 7-18 MG/DL Creatinine 1.03 0.60-1.30 MG/DL Estimat Glomerular Filtration Rate 86 BUN/Creatinine Ratio 10 Glucose Level 108 H 70-105 MG/DL Calcium Level 9.2 8.5-10.1 MG/DL Corrected Calcium 8.9 8.5-10.1 MG/DL Total Bilirubin 0.3 0.1-1.0 MG/DL Aspartate Amino Transf (AST/SGOT) 40 H 5-34 U/L Alanine Aminotransferase (ALT/SGPT) 46 0-55 U/L Alkaline Phosphatase 52 40-136 U/L Troponin I < 0.028 <0.028 NG/ML Total Protein 7.5 6.4-8.2 GM/DL Albumin 4.4 3.2-4.5 GM/DL My Orders Orders - MICHELLE GONSALES ENVIRONMENTAL ENGINEERING TECHNICIAN Cbc With Automated Diff (05/13/21 17:09) Comprehensive Metabolic Panel (05/13/21 17:09) Chest 1 View, Ap/Pa Only (05/13/21 17:09) Fibrin Degradation Products (05/13/21 17:09) Ekg Tracing (05/13/21 17:09) Troponin I (05/13/21 17:09) Ed Iv/Invasive Line Start (05/13/21 17:09) Ibuprofen Tablet (Motrin Tablet) (05/13/21 17:15) Manual Differential (05/13/21 17:15) Medications Given in ED Vital Signs/I&O 05/13/21 05/13/21 17:00 19:25 Temp 37.0 37.0 Pulse 75 75 Resp 16 16 B/P (MAP) 154/96 (115) 154/96 Pulse Ox 98 98 O2 Delivery Room Air Room Air Capillary Refill : ECG Initial ECG Impression Date: May 13, 2021 Initial ECG Impression Time: 17:21 Initial ECG Rate: 79 Initial ECG Rhythm: Normal Sinus Initial ECG Intervals: Normal Initial ECG Impression: Nonspecific Changes Initial ECG Comparisson: No Previous ECG Available Diagnostic Imaging Diagonstic Imaging: Xray Plain Films/CT/US/NM/MRI: chest Comments [facility] [place] NAME: NIRALI HENDERSON [facility] REC#: [id number] PT STATUS: REG ER : 1990 PHYSICIAN: MICHELLE GONSALES ENVIRONMENTAL ENGINEERING TECHNICIAN ADMIT DATE: 05/13/21/ER Signed Date of Exam:05/13/21 CHEST 1 VIEW, AP/PA ONLY INDICATION: Hypoxemia and Covid infection. EXAMINATION: AP view of the chest was obtained. COMPARISON: No previous study is available for comparison at this time. FINDINGS: Heart size and pulmonary vasculature are within normal limits, and the lungs are clear, bilaterally. IMPRESSION: Unremarkable chest. Dictated by: Dictated on workstation # [id number] Dict: 05/13/211829 Trans: 05/13/211914 [facility] [id number] Interpreted by: YOAN MEDINA MD Electronically signed by: YOAN MEDINA MD 05/13/211914 Reviewed: Reviewed by Me Departure Impression Primary Impression: COVID-19 Disposition: 01 HOME, SELF-CARE Condition: Improved Departure-Patient Inst. Decision time for Depature: 19:05 Referrals: SHANE VELIZ MD (PCP/Family) Primary Care Physician Patient Instructions: COVID-19 (DC) Add. Discharge Instructions: Plan: 1. Continue to isolate at home until released by [facility] Departme nt. 2. May take Tylenol and Ibuprofen as needed for fever and discomfort. 3. [facility] will contact you regarding your infusion. 4. Take steroids as directed with food. 5. Return to ER for any new, concerning, or worsening symptoms. All discharge instructions reviewed with patient and/or family. Voiced understanding. Scripts Methylprednisolone (Methylprednisolone Dose Pack) 4 Mg Tab.ds.pk 4 MG PO UD for 6 Days, #21 PKG 0 Refills PER DOSE PACK INSTRUCTIONS Prov: MICHELLE GONSALES APRN 05/13/21 MICHELLE GONSALES APRN May 13, 2021 17:12
[2021-05-13] MEDS ORDERED: IBUPROFEN 600 MG (MOTRIN) TAB PO ONE (17:15)
[2021-05-13 17:24] LABS: BASOPHILS % (AUTO) 0 % (0-10); EOSINOPHILS % (AUTO) 1 % (0-10); HEMATOCRIT 45 % (40-54); HEMOGLOBIN 15.7 g/dL (13.3-17.7); LYMPHOCYTES % (AUTO) 36 % (12-44); MEAN CORPUSCULAR HEMOGLOBIN 30 pg (25-34); MEAN CORPUSCULAR HGB CONC 35 g/dL (32-36); MEAN CORPUSCULAR VOLUME 86 fL (80-99); MEAN PLATELET VOLUME 9.1 fL (9.0-12.2); MONOCYTES # (AUTO) 0.6 10^3/uL (0.0-1.0); MONOCYTES % (AUTO) 20 % (0-12); NEUTROPHILS # (AUTO) 1.2 10^3/uL (1.8-7.8); NEUTROPHILS % (AUTO) 42 % (42-75); PLATELET COUNT 162 10^3/uL (130-400); WHITE BLOOD COUNT 2.8 10^3/uL (4.3-11.0)
[2021-05-13 17:31] LABS: ALBUMIN 4.4 GM/DL (3.2-4.5); CHLORIDE 103 MMOL/L (98-107); POTASSIUM 3.9 MMOL/L (3.6-5.0); SODIUM 138 MMOL/L (135-145)
[2021-05-13 17:32] LABS: CALCIUM 9.2 MG/DL (8.5-10.1)
[2021-05-13 17:33] LABS: GLUCOSE 108 MG/DL (70-105)
[2021-05-13 17:34] LABS: TOTAL PROTEIN 7.5 GM/DL (6.4-8.2)
[2021-05-13 17:35] LABS: BILIRUBIN,TOTAL 0.3 MG/DL (0.1-1.0); CARBON DIOXIDE 24 MMOL/L (21-32)
[2021-05-13 17:37] LABS: ALKALINE PHOSPHATASE 52 U/L (40-136); CREATININE SERUM 1.03 MG/DL (0.60-1.30); GFR ESTIMATED 86
[2021-05-13 17:38] LABS: BUN/CREATININE RATIO 10
[2021-05-13 17:40] LABS: ALANINE AMINOTRANSFERASE 46 U/L (0-55)
[2021-05-13 18:22] LABS: BAND NEUTROPHILS 2 %; EOSINOPHILS % (MANUAL) 2 %; LYMPHOCYTES % (MANUAL) 33 %; MONOCYTES % (MANUAL) 16 %; NEUTROPHILS % (MANUAL) 47 %; RBC MORPH NORMAL
--- NOTE | 2021-05-13 18:36 | Diagnostic Imaging Report ---
INDICATION: Hypoxemia and Covid infection. EXAMINATION: AP view of the chest was obtained. COMPARISON: No previous study is available for comparison at this time. FINDINGS: Heart size and pulmonary vasculature are within normal limits, and the lungs are clear, bilaterally. IMPRESSION: Unremarkable chest. Dictated by: Dictated on workstation # [id number]
[2021-05-13] MEDS ORDERED: METH4TAB10 PO (19:07)
[2021-05-13 19:25] VITALS: BP 154/96
== END 2021-05-13 19:34 | disposition home or self-care (01) ==
LOC: EDUNIT# 16:46 → ER 16:48
DX: U07.1 COVID-19 (principal)
CPT/HCPCS: 36415; 71045; 80053; 84484; 85007; 85027; 85379; 93005

== ENCOUNTER → 2022-04-04 | Outpatient (CLI) | payer BC ==
[~2022-04-04] MED LIST changes: +METH4TAB10 PO
--- NOTE | 2022-04-04 17:59 | Diagnostic Imaging Report ---
EXAMINATION: Lumbosacral spine 2 or 3 views HISTORY: Low back pain COMPARISON: None available. FINDINGS: There is mild disc height loss of L1-L2 and L2-L3. No acute fracture. Vertebral body heights are normal. Alignment is normal. IMPRESSION: Mild disc height loss at L1-L2 and L2-L3. No acute fracture. Dictated by: Dictated on workstation # [id number]
== END ==
LOC: RAD FS 17:38
PROVIDERS: ATTEND Nurse Practitioner Family
DX: M51.36 Other intervertebral disc degeneration, lumbar region (principal)
CPT/HCPCS: 72100